=== PATIENT | female | born 1985 | race Caucasian/White ===

== ENCOUNTER 2018-11-07 21:11 | Emergency (ER) | payer MEDICAID ==
[~2018-11-07] VITALS: Ht 160 cm; Wt 57.9 kg
[2018-11-07 22:18] LABS: URINE HCG NEGATIVE (NEG)
[2018-11-07 22:29] LABS: CLARITY,URINE CLEAR (Clear); COLOR,URINE STRAW (Yellow); GLUCOSE, URINE NEGATIVE (Neg); KETONES,URINE NEGATIVE (Neg); LEUKOCYTE ESTERASE ,URINE SMALL (Neg); NITRITES, URINE NEGATIVE (Neg); OCCULT BLOOD,URINE TRACE-INTACT (Neg); PROTEIN,URINE NEGATIVE (Neg); UROBILINOGEN,URINE 0.2 E.U/dL (0.2-1.0)
[2018-11-07 22:30] LABS: UA COLLECTION TYPE CLN CATCH MIDSTREAM
--- NOTE | 2018-11-07 22:31 | NUR ---
IN PAST 9 MONTHS PT HAS HAD NUMEROUS UTI'S AND HAS JUST FINISHED 1.5 WEEK AGO HER LAST ANTIBIOTICS.
[2018-11-07 22:35] LABS: BACTERIA,URINE 3+ /HPF (Neg); RBC,URINE NONE SEEN /HPF (0-2)
[2018-11-07 22:36] LABS: SQUAMOUS EPITHELIAL CELL,UR MODERATE /LPF (FEW)
[2018-11-07 22:40] VITALS: BP 117/83
[2018-11-07] MEDS ORDERED: CIPR-230 PO (23:53)
[2018-11-07] MEDS ORDERED: ciprofloxacin 250mg tablet PO ONE (23:55)
[2018-11-07] MEDS ORDERED: CefTRIAXone 1000mg IM Kit (w/lidocaine diluent) IM ONE (23:55)
== END 2018-11-08 00:18 | disposition home or self-care (01) ==
LOC: ER 21:13
DX: N39.0 Urinary tract infection, site not specified (principal); E28.2 Polycystic ovarian syndrome; Z88.6 Allergy status to analgesic agent; Z88.5 Allergy status to narcotic agent; Z87.442 Personal history of urinary calculi
CPT/HCPCS: 81001; 81025; 87077; 87088; 87186; 96372; 99283; J0696

== ENCOUNTER 2023-03-25 05:24 | Emergency (ER) | payer BC, OTHER ==
[~2023-03-25] VITALS: Ht 160 cm; Wt 71.8 kg
[2023-03-25 05:31] VITALS: BP 139/96; PULSE 73; TEMP 98; O2SAT 100
--- NOTE | 2023-03-25 05:46 | NUR ---
Warm blanket provided for patient.
--- NOTE | 2023-03-25 06:46 | NUR ---
HELPED PT TO BEDSIDE COMMODE. OUTPUT OF 350ML URINE. HELPED PT BACK IN TO BED. PT IS EXPERIENCING PAIN THROUGHOUT AND IS WAITING TO SEE MD.
[2023-03-25] MEDS ORDERED: dexamethasone sod phosphate 10mg/ml inj IM STA (06:57)
[2023-03-25] MEDS ORDERED: HYDROmorphone 1 mg/ml syringe IM ONE (07:00)
[2023-03-25] MEDS ORDERED: ondansetron 4mg rapidly disintigrating tab PO ONE (07:00)
[2023-03-25 07:18] VITALS: RESP 18
--- NOTE | 2023-03-25 07:27 | NUR ---
medications given as prescribed. pt declines xray stating "i had an xray and bone density scan 2 months ago and dont want another". aware.
== END 2023-03-25 07:45 | disposition home or self-care (01) ==
LOC: ER 05:25
DX: G89.29 Other chronic pain (principal); M54.59 Other low back pain; R07.81 Pleurodynia; Z88.6 Allergy status to analgesic agent; Z79.899 Other long term (current) drug therapy; Z88.5 Allergy status to narcotic agent
CPT/HCPCS: 96372; 99284; J1100; J1170